=== PATIENT | female | born 1965 | race Caucasian/White ===

== ENCOUNTER 2019-01-19 12:36 | Outpatient (REF) | payer BC, SELFPAY ==
--- NOTE | 2019-01-19 09:30 | PAPFT_PTH ---
PATIENT: Yohana Gomez LOC: [facility] U#:[id number] AGE/SX: 53/F ROOM: RE01/19/[address]: NICOLE Boateng : 1965 BED: DIS: 01/19/2019 SPEC #: [id number] RECD: 01/19/19 13:04 STATUS: HAMZAH REUri #: [id number] KULWINDER: 01/19/19 09:[address]: Loli Howell [facility] Cytology RECD BY: Lupe Benedict Tissues: 1 - CX/ENDOCX FOR PAP SMEARS Procedures: PAP THIN PREP/UVM Screening Comments: [id number] (UNSATISFACTORY FOR EVALUATION)
== END 2019-01-19 12:56 ==
LOC: LBN 12:36
PROVIDERS: PCP Nurse Practitioner Family; Visit Provider Nurse Practitioner Family
DX: Z12.4 Encounter for screening for malignant neoplasm of cervix (principal); Z11.51 Encounter for screening for human papillomavirus (HPV)
CPT/HCPCS: 88142; 87624

== ENCOUNTER 2019-01-29 02:17 | Outpatient (CLI) | payer BC, SELFPAY ==
[2019-01-29 12:50] LABS: Hemoglobin A1C 6.1 % (4.5-6.2)
[2019-01-29 12:57] LABS: Anion Gap 8.5 mmol/L (3-11); BUN 22 mg/dL (7-18); CO2 28.5 mmol/L (21.0-32.0); CREATININE 0.87 mg/dL (0.55-1.02); Calcium 9.3 mg/dL (8.5-10.1); Chloride 102 mmol/L (98-107); Cholesterol 163 mg/dL (50-200); Glucose 104 mg/dL (70-100); HDL Cholesterol 55 mg/dL (40-60); LDL CHOLESTEROL 93 mg/dL (<100); Sodium 139 mmol/L (136-145); Triglyceride 79 mg/dL (30-150)
== END 2019-01-29 02:37 ==
PROVIDERS: PCP Nurse Practitioner Family; Visit Provider Nurse Practitioner Family
DX: Z00.00 Encounter for general adult medical examination without abnormal findings (principal); R73.01 Impaired fasting glucose
CPT/HCPCS: 36415; 80048; 80061; 83721; 83036

== ENCOUNTER 2019-02-09 08:44 | Outpatient (CLI) | payer BC, SELFPAY ==
--- NOTE | 2019-02-09 09:00 | DI.MAMMO_ITS ---
SYMPTOM/DIAGNOSIS: SCREENING, Z12.31, ANNUAL PHYSICAL EXAM, Z00.00 MAMMOGRAMS: Mammograms were interpreted according to the usual protocol including computer analysis with CAD system, tomosynthesis and C view imaging. The breasts are of moderate density with fairly symmetrical distribution of fibroglandular tissue. No dominant mass or clumped microcalcification is identified in either breast. The current examination is compared with previous examinations including 01/2017 and there has been no gross interval change in appearance in comparison with the previous studies. CONCLUSION: No specific evidence of malignancy at this time. Routine screening examinations are suggested at yearly intervals in this age group according to the ACS/ACR guidelines. Category 1. Breast density, category B. MQSA ASSESSMENT OF FINDINGS: Negative. Category 1. Patient will receive a letter notifying them of these results. BI-RADS category B. There are scattered areas of fibroglandular density.
== END 2019-02-09 09:04 ==
PROVIDERS: PCP Nurse Practitioner Family; Visit Provider Nurse Practitioner Family
DX: Z00.00 Encounter for general adult medical examination without abnormal findings (principal); Z12.31 Encounter for screening mammogram for malignant neoplasm of breast
CPT/HCPCS: 77063; 77067

== ENCOUNTER 2019-03-26 09:35 | Outpatient (REF) | payer BC, SELFPAY ==
--- NOTE | 2019-03-26 09:24 | PAPFT_PTH ---
PATIENT: Yohana Gomez LOC: [facility] U#:[id number] AGE/SX: 54/F ROOM: RE03/26/[address]: NICOLE Boateng : 1965 BED: DIS: 03/26/2019 SPEC #: [id number] RECD: 03/26/19 13:06 STATUS: HAMZAH KAUR #: [id number] KULWINDER: 03/26/19 09:[address]: Loli Howell DEPT: [facility] Cytology RECD BY: Lupe Benedict Tissues: 1 - CX/ENDOCX FOR PAP SMEARS Procedures: PAP THIN PREP/UVM Screening HPV DNA PROBE Comments: [id number]
== END 2019-03-26 09:55 ==
LOC: LBN 09:35
PROVIDERS: PCP Nurse Practitioner Family; Visit Provider Nurse Practitioner Family
DX: Z12.4 Encounter for screening for malignant neoplasm of cervix (principal); Z11.51 Encounter for screening for human papillomavirus (HPV)
CPT/HCPCS: 88142; 87624

== ENCOUNTER 2020-06-24 00:54 | Outpatient (CLI) | payer BC, SELFPAY ==
--- NOTE | 2020-06-24 15:53 | DI.MAMMO_ITS ---
EXAM: MG MAMMO SCREENING CLINICAL HISTORY: screening, Z12.39 TECHNIQUE: Bilateral full field digital CC and MLO mammographic images were obtained with 3D tomosyn thesis and utilizing computer aided detection (CAD). COMPARISON: Available for comparison. FINDINGS: Masses/Architectural Distortion: There is a focus of asymmetric breast tissue in the upper right reg st seen on the MLO view. Microcalcifications: No suspicious pleomorphic-type are seen. Skin Thickening/Nipple Retraction: None. IMPRESSION: 1. Focus of asymmetric breast tissue in the upper right breast on the MLO view. 2. Spot compression views and a right breast ultrasound are recommended for further evaluation. BI-RADS Category 0 - Assessment Incomplete: Need additional imaging evaluation Breast Density - Category B - Scattered areas of fibroglandular density A negative radiographic report should not delay biopsy if a dominant or clinically suspicious mass is present. Up to ten percent of cancers are not identified on mammography. A negative report may reinforce clinical impression. Adenosis and dense breasts may obscure an underlying neoplasm. False positive reports average 6 to 10%. Patient will receive a letter notifying them of these results.
== END 2020-06-24 01:14 ==
PROVIDERS: PCP Nurse Practitioner Family; Visit Provider Nurse Practitioner Family
DX: Z12.31 Encounter for screening mammogram for malignant neoplasm of breast (principal); R92.8 Other abnormal and inconclusive findings on diagnostic imaging of breast
CPT/HCPCS: 77063; 77067

== ENCOUNTER 2020-07-09 01:10 | Outpatient (CLI) | payer BC, SELFPAY ==
--- NOTE | 2020-07-09 | DI.MAMMO_ITS ---
EXAM: MG MAMMO SCREEN CALL BACK UNI CLINICAL HISTORY: F/U MAMMO, ASYMMETRIC BREAST TISSUE UPPER RT BREAST MLO VIEW TECHNIQUE: Mammograms were interpreted according to the usual protocol including computer analysis w [employer] CAD system, tomosynthesis and C-view imaging. COMPARISON: FINDINGS: Additional mammographic views of the right breast and right breast ultrasound are interpreted in conj unction. MLO spot compression view was obtained to evaluate questionable area of asymmetric density seen on recent mammogram. Spot compression view fails to show a discrete mass and no change from renetta or studies. Breast ultrasound shows no evidence of a mass or cyst. IMPRESSION: No specific evidence of malignancy at this time. Follow-up unilateral right breast mammogram recomme nded in 6 months. BI-RADS Category 3 - 6 month - Probably Benign Finding: Recommend follow-up mammography in 6 months Breast Density - Category B - Scattered areas of fibroglandular density
== END 2020-07-09 01:30 ==
PROVIDERS: PCP Nurse Practitioner Family; Visit Provider Nurse Practitioner Family
DX: R92.8 Other abnormal and inconclusive findings on diagnostic imaging of breast (principal); R92.2 Inconclusive mammogram
CPT/HCPCS: 76642; 77063; 77067

== ENCOUNTER 2020-12-10 08:37 | Outpatient (CLI) | payer BC, SELFPAY ==
[2020-12-11 13:06] LABS: COVID-19 RT-PCR UVMMC Result Negative (Negative)
== END 2020-12-10 08:38 | disposition home or self-care (01) ==
LOC: LBO 08:38
PROVIDERS: PCP Nurse Practitioner Family; Visit Provider Nurse Practitioner Family
DX: Z20.822 Contact with and (suspected) exposure to COVID-19 (principal)
CPT/HCPCS: U0003

== ENCOUNTER 2021-01-06 01:19 | Outpatient (CLI) | payer BC, SELFPAY ==
--- NOTE | 2021-01-06 09:49 | DI.MAMMO_ITS ---
EXAM: MG MAMMO DIAGNOSTIC UNI CLINICAL HISTORY: 3-6 MO F/U OF RT BREAST,F/U ABNL MAMMO, R92.8,Z09 TECHNIQUE: Mammograms were interpreted according to the usual protocol including computer analysis w ith CAD system, tomosynthesis and C-view imaging. COMPARISON: FINDINGS: Today's mammogram was obtained of the right breast only to evaluate questionable area of asymmetric d ensity seen on MLO view of prior mammogram of June 2020. Findings are unchanged or less promine nt on the current examination. No new mass or clumped microcalcification seen. IMPRESSION: No specific evidence of malignancy at this time. I would suggest that routine screening examinations resume with a bilateral mammogram in 6 months. BI-RADS Category 3 - 6 month - Probably Benign Finding: Recommend follow-up mammography in 6 months Breast Density - Category B - Scattered areas of fibroglandular density
== END 2021-01-06 01:39 ==
PROVIDERS: PCP Nurse Practitioner Family; Visit Provider Nurse Practitioner Family
DX: R92.8 Other abnormal and inconclusive findings on diagnostic imaging of breast (principal)
CPT/HCPCS: 77061; 77065; G0279

== ENCOUNTER 2021-06-16 04:34 | Outpatient (CLI) | payer BC, SELFPAY ==
[2021-06-16 13:05] LABS: Anion Gap 7.5 mmol/L (3-11); BUN 17 mg/dL (7-18); CO2 28.5 mmol/L (21.0-32.0); CREATININE 0.8 mg/dL (0.55-1.02); Calcium 9.2 mg/dL (8.5-10.1); Calculated LDL 78 mg/dL (<100); Chloride 104 mmol/L (98-107); Cholesterol 152 mg/dL (<200); Glucose 94 mg/dL (74-106); HDL Cholesterol 57 mg/dL (40-60); Potassium 4.3 mmol/L (3.5-5.1); Sodium 140 mmol/L (136-145); Triglyceride 89 mg/dL (<150)
[2021-06-16 13:13] LABS: Hemoglobin A1C 5.8 % (<5.7)
== END 2021-06-16 04:35 | disposition home or self-care (01) ==
LOC: LOS 04:35
PROVIDERS: PCP Nurse Practitioner Family; Visit Provider Nurse Practitioner Family
DX: R73.03 Prediabetes (principal)
CPT/HCPCS: 36415; 80048; 80061; 83036

== ENCOUNTER 2021-12-22 00:34 | Outpatient (CLI) | payer MEDICAID, SELFPAY ==
--- NOTE | 2021-12-22 07:15 | DI.MAMMO_ITS ---
Exam(s) MAMMO SCREENING EXAM: MAMMO SCREENING CLINICAL HISTORY: screening,z12.39 TECHNIQUE: Bilateral full field digital CC and MLO mammographic images were obtained with 3D tomosyn thesis and utilizing computer aided detection (CAD). COMPARISON: Available for comparison. FINDINGS: Masses/Architectural Distortion: None seen. Microcalcifications: No suspicious pleomorphic-type are seen. Skin Thickening/Nipple Retraction: None. IMPRESSION: 1. No significant interval change with no specific features of malignancy noted. 2. Unless there is more urgent need, screening mammography is recommended, as per [employer] guidelines. BI-RADS Category 1 - Negative Breast Density - Category B - Scattered areas of fibroglandular density Breast density category C or D implies that the patient has dense breast tissue. Dense breast tissue is very common and is not abnormal but dense breast tissue can make it harder to find cancer on a ma mmogram. Also, dense breast tissue may increase their breast cancer risk. This information about the result of the mammogram report was provided to the patient to raise their awareness. Use this report when you speak with the patient about their risks for breast cancer, which includes their family hist ory. At that time, you may recommend for more screening tests (Ultrasound or MRI) as they might be us eful based on their risk. A negative radiographic report should not delay biopsy if a dominant or clinically suspicious mass is present. Up to ten percent of cancers are not identified on mammography. A negative report may reinforce clinical impression. Adenosis and dense breasts may obscure an underlying neoplasm. False positive reports average 6 to 10%. Patient will receive a letter notifying them of these results.
== END 2021-12-22 00:54 ==
PROVIDERS: PCP Nurse Practitioner Family; Visit Provider Nurse Practitioner Family
DX: Z12.31 Encounter for screening mammogram for malignant neoplasm of breast (principal)
CPT/HCPCS: 77063; 77067

== ENCOUNTER 2022-02-04 10:15 | Outpatient (CLI) | payer MEDICAID, SELFPAY ==
--- NOTE | 2022-02-04 09:45 | DI.RAD_ITS ---
Exam(s) XR FINGER RT INDEX EXAM: XR FINGER RT INDEX CLINICAL HISTORY: evaluation TECHNIQUE: COMPARISON: No exams were available for comparison FINDINGS: Three views were obtained. There is slight narrowing of the cartilaginous joint space of the DIP ingrid nt. A small calcific or ossific density is seen adjacent to the ulnar aspect of the joint, presumabl y on a degenerative basis. Minimal marginal osteophyte formation also noted at the joint. No other bony or soft tissue abnormality seen. 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 RADIATION DOSE DELIVERED: Total DLP
== END 2022-02-04 10:16 | disposition home or self-care (01) ==
LOC: DIORS 10:15
PROVIDERS: PCP Nurse Practitioner Family; Referring Provider Nurse Practitioner Family; Visit Provider Physician Assistant Surgical
DX: M79.644 Pain in right finger(s) (principal); M94.8X4 Other specified disorders of cartilage, hand; M25.741 Osteophyte, right hand
CPT/HCPCS: 73140

== ENCOUNTER → 2022-02-12 00:26 | Outpatient (CLI) | payer MEDICAID, SELFPAY ==
--- NOTE | 2022-02-12 06:15 | DI.US_ITS ---
Exam(s) US SOFT TISSUE EXTREMITY EXAM: US SOFT TISSUE EXTREMITY CLINICAL HISTORY: evaluation of soft tissue mass/cyst,of finger,ganglion,m67.441. TECHNIQUE: Ultrasound was performed using standard protocol. COMPARISON: CR XR FINGER RT INDEX from 02/04/2022 FINDINGS: Sonographic assessment utilizing grayscale and color Doppler imaging was performed and targeted to th e area of clinical concern. There is a fluid collection measuring 9 x 7 x 8 millimeters corresponding to the palpable abnormality . No solid mass is seen. IMPRESSION: 9 millimeter cyst corresponding to the palpable abnormality of the index finger. DATA REPOSITORY:
== END ==
PROVIDERS: PCP Nurse Practitioner Family; Visit Provider Physician Assistant Surgical
DX: M67.441 Ganglion, right hand (principal); R22.31 Localized swelling, mass and lump, right upper limb
CPT/HCPCS: 76881

== ENCOUNTER 2022-02-24 08:39 | Day surgery (SDC) | payer MEDICAID, SELFPAY ==
[2022-02-24 08:57] VITALS: BP 120/83; PULSE 81; RESP 18; TEMP 36.7; O2SAT 99
--- NOTE | 2022-02-24 11:17 | W.PM.DSUDISC ---
Discharge Plan Disposition Patient Disposition: HOME Condition: Good Discharge Details Reason For Visit: Right index finger excisional biopsy Attending Provider: Vinicius Austin Primary Care Provider: Loli Howell Home Meds and New Rx's Prescriptions: Continued Flovent HFA 110 mcg/actuation HFA aerosol inhaler 1 inh inhalation BID Qty: 12 4RF (DME) Aerochamber MV Spacer See Rx Instructions .Route Qty: 10 1RF Rx Instructions: Use with inhaler albuterol sulfate [ProAir HFA] 90 mcg/actuation HFA aerosol inhaler 2 puff inhalation Q6H PRN (Reason: shortness of breath or wheezing) Qty: 8.5 5RF (DME) Pocket Peak Flow Meter Device See Rx Instructions .Route Qty: 1 0RF Rx Instructions: As directed montelukast 10 mg tablet 10 mg PO HS Qty: 90 4RF Rx Instructions: Take 1 tablet by mouth at bedtime cholecalciferol (vitamin D3) [Vitamin D3] 50 mcg (2,000 unit) Capsule 50 mcg PO DAILY 0RF black cohosh 540 mg Capsule 0RF cod liver oil Capsule 650 cap PO DAILY 0RF Discharge Instructions Additional Instructions: Excisional Biopsy Discharge Instructions Activity: You should keep the hand elevated as much as possible for the first few days. You may use the other fingers as tolerated but avoid trying to do too much too soon. You may perform light activities with the dressing in place. Dressing: Your dressing should stay in place for 48 hours. After 48 hours may remove and apply a band-aide. Apply ice as needed. Medications: - You should take Tylenol and Ibuprofen for baseline pain control. - You may apply ice over the finger. Follow-up: 7-10 days Stand Alone Forms: Lin Arreola (U) Referrals: Vinicius Austin MD [ [facility] STAFF PHYSICIAN] - Activity:: Elevate Remove Dressings/Wound Care:: 48 hours Shower/Bathe:: 48 hours Diet:: As Tolerated Discharge Orders Discharge Orders: Discharge Order (Routine); Ordered 02/24/22 Ordered By: Torrie Hood
[2022-02-24] MEDS: Lidocaine 1% Multi-Dose 50 ML VIAL (11:30)
[2022-02-24] MEDS: Sodium Bicarbonate 50 MEQ/50 ML VIAL (11:30)
[2022-02-24 11:43] VITALS: BP 120/62; PULSE 72; RESP 18; TEMP 36.1; O2SAT 100
--- NOTE | 2022-02-24 21:06 | W.PM.OP ---
Date of service: 02/24/22 Time of Service: 11:20 Operative Note Operative Note DATE OF PROCEDURE: 02/24/22 PRE-OP DIAGNOSIS: Right Index Finger Mass POST-OP DIAGNOSIS: other (Right Index Finger Ganglion Cyst) PROCEDURE: Excision of deep cyst - right index finger SURGEON: Vinicius Austin ANESTHESIA TYPE: Local By Surgeon Refer to Anesthesia Record ESTIMATED BLOOD LOSS: 5 PATHOLOGY: none sent COMPLICATIONS: None Patient was transported to: same day Patient's condition: stable Indications: I have seen Yohana in clinic for symptoms of a mass about the right index finger. The mass persisted and caused pain to direct contact and with use. It appeared benign and was a likely cyst but was in a unique position so therefore I recommended an excisional biopsy. The symptoms had not responded to conservative measures. I discussed mass excision with the patient. I reviewed the risks of the procedure to include, but not limited to, bleeding, infection, pain, stiffness, recurrence, need for repeat procedures, damage to nerves or vessels. Despite these risks, the patient elected to proceed. Findings: There is a ganglion cyst deep to the neurovascular bundle over the palmar radial aspect of the finger. This was removed in whole as well as the bursal tissue. Procedure Description: Yohana was greeted in the preoperative holding area where the correct side was identified and marked. The consent was reviewed with the patient and signed. All questions were answered. She was taken back to the operating room. The patient was placed into the supine position on the operating room table with the right arm on an arm board. All bony prominences were well padded. No prophylactic antibiotics were administered since this was a clean, elective hand surgical case. The right arm was then prepped with Chloraprep and draped in a standard fashion with stockinette and extremity drape. A timeout to confirm correct identity, side and site, procedure, allergies, anesthesia, and medical concerns was performed. A digital block was then performed using 1% lidocaine with epinephrine and buffered with sodium bicarbonate. This was allowed time to set up completely and was tested before proceeding with the case. A longitudinal incision was then made overlying the cyst. The skin was incised sharply. Full-thickness flaps were then elevated where promiinent fat was identified. This was resected. This seemed to be more than I was expecting but was not organized to suggest a lipoma. Neurovascular bundle was then identified and retracted out of the way at this point a deeper cyst became evident. The cyst capsule was standard and its appearance. I was able to dissect out the cyst and then resected in a hole. The cyst capsule was then removed with a rongeur. It was adjacent to the bone and the bone surface was also roughened at this point. Did not seem to travel back to the PIP or the MCP joint. The finger was irrigated and once again checked to make sure that all components of the cyst were removed. The skin was then closed using a #4-0 nylon in interrupted fashion. The finger was dressed with Xeroform, 4 x 4, conform dressing. The patient tolerated the procedure well and was returned to the Same Day Surgery area in a stable condition suffering no known complication.
== END 2022-02-24 12:17 | disposition home or self-care (01) ==
PROVIDERS: PCP Nurse Practitioner Family; Visit Provider Student in an Organized Health Care Education/Training Program
PROC: (CPT 26160; principal; 2022-02-24 11:45)
DX: M67.441 Ganglion, right hand (principal)
CPT/HCPCS: 26160

== ENCOUNTER 2022-12-06 07:13 | Day surgery (SDC) | payer MEDICAID, SELFPAY ==
--- NOTE | 2022-12-05 19:49 | W.COLOREPORT ---
Date of service: 12/06/22 Time of Service: 09:45 Colonoscopy Report Date of procedure: 12/06/22 Pre-op diagnosis general: Screening colonscopy; positive family history Post-op diagnosis procedure note: other (rectal polyps) Procedure: 1. Colonosocpy 2. Cold forceps polypectomy Surgeon: Tushar Rowe Anesthesia Type: MAC Estimated blood loss (mL): 2 Pathology: other (rectal polyps) Complications: None Disposition: same day Indications: Screening--unremarkable scope in 2016; Positive Family history; Prep: Miralax/Dulcolax Retraction Time: >15 min Findings: hyperplastic-appearing rectal polyps at 10cm Procedure Description: After informed consent was obtained, the patient was taken to the procedure room and placed in a left decubitus position. Monitors were applied and a time out was done. The patient's name, date of , procedure, allergies to medications, and metal in their body were reviewed. The patient was then sedated. Once sedated and comfortable, a digital rectal exam was done. External exam was normal. Internal exam revealed normal sphincter tone, and no palpable masses or gross blood. The colonoscope was then introduced and advanced to the cecum under direct visualization with mild difficulty. The ileocecal valve and appendiceal orifice were visualized. The prep was excellent.? ?The scope was then slowly withdrawn over 15 minutes in a circumferential manner to the rectum. In doing so, 2 small rectal polyps were encountered. These were taken by cold forceps.? There? was no diverticulosis noted. The mucosa is pink and healthy.? In the rectum, the scope was retroflexed, and mild internal hemorrhoids were noted.? The scope was straightened and withdrawn from the anus. The patient tolerated the procedure well, and there were no immediate complications.? The patient was taken to the Day Surgery Unit recovery?area in good condition. Follow up: 5 years, await pathology
--- NOTE | 2022-12-05 19:52 | W.PM.DSUDISC ---
Date of service: 12/06/22 Time of Service: 09:51 Discharge Plan Disposition Patient Disposition: Home Condition: Good Discharge Details Reason For Visit: Screening for colorectal cancer; +family history Attending Provider: Tushar Rowe Primary Care Provider: Loli Howell Home Meds and New Rx's Prescriptions: No Action montelukast 10 mg tablet 10 mg PO HS Qty: 90 4RF Rx Instructions: Take 1 tablet by mouth at bedtime fluticasone propionate [Flovent HFA] 110 mcg/actuation HFA aerosol inhaler 1 inh inhalation BID Qty: 12 4RF (DME) Aerochamber MV Spacer See Rx Instructions .Route Qty: 10 1RF Rx Instructions: Use with inhaler bisacodyl [Dulcolax (bisacodyl)] 5 mg tablet,delayed release (DR/EC) 5 mg PO ONCE Qty: 4 0RF Rx Instructions: Take according to provider's instructions for colonoscopy prep. polyethylene glycol 3350 17 gram/dose powder 17 g PO ONCE Qty: 238 0RF Rx Instructions: To be taken as directed by prescriber's office for colonoscopy prep. (DME) Pocket Peak Flow Meter Device See Rx Instructions .Route Qty: 1 0RF Rx Instructions: As directed cholecalciferol (vitamin D3) [Vitamin D3] 50 mcg (2,000 unit) Capsule 50 mcg PO DAILY cod liver oil Capsule 650 cap PO DAILY albuterol sulfate [ProAir HFA] 90 mcg/actuation HFA aerosol inhaler 2 inh INHALATION PRN PRN Patient Comments: INHALE TWO PUFFS EVERY 6 HOURS NEEDED FOR FOR SHORTNESS OF BREATH Discharge Instructions Instructions: Colonoscopy (DC), Colorectal Polyps (DC) Additional Instructions: Await pathology. Repeat colonoscopy in 5 years. Activity:: Activity as Tolerated Diet:: As Tolerated DS: Diagnosis Discharge Diagnosis (1) Family history of colon cancer: Status: Acute Asessment and Plan: --repeat colonoscopy in 5 years (2) Rectal polyp: Status: Acute Asessment and Plan: --await pathology
[2022-12-06 07:31] VITALS: BP 127/87; PULSE 91; RESP 18; TEMP 36.4; O2SAT 97
[2022-12-06] MEDS: Lactated Ringers 1,000 ML 80 ML IV (07:55)
--- NOTE | 2022-12-06 08:24 | W.ANESPRE ---
General Info Date of Service Date Performed: 12/06/22 Height: 5 ft 3 in Weight: 82.4 kg Body Mass Index (BMI): 32.1 Surgical Procedure: Operation Date: 12/06/22 08:35 Proposed Procedure Side Surgeon fernandez Rowe MD Meds Allergies and Home Medications Allergies Allergy/AdvReac Type Severity Reaction Status Date / Time clindamycin Allergy Mild Skin Rash Unverified 12/06/22 07:39 cephalexin Allergy Skin Rash Unverified 12/06/22 07:39 Penicillins Allergy Skin Rash Unverified 12/06/22 07:39 Home Medication Medication Instructions Recorded inhalational spacing device #10 ea 12/16/21 (Aerochamber MV spacer) peak flow meter (Pocket Peak Flow #1 ea 12/30/21 Meter) cholecalciferol (vitamin D3) 50 50 mcg PO DAILY 02/24/22 mcg (2,000 unit) capsule (Vitamin D3) cod liver oil 650 cap PO DAILY 02/24/22 fluticasone propionate 110 1 inh inhalation BID #12 grams 06/17/22 mcg/actuation HFA aerosol inhaler (Flovent HFA) montelukast 10 mg tablet 10 mg PO HS #90 tab-caps 06/17/22 bisacodyl 5 mg tablet,delayed 5 mg PO ONCE #4 tabs 11/25/22 release (Dulcolax (bisacodyl)) polyethylene glycol 3350 17 17 g PO ONCE #238 grams 11/25/22 gram/dose oral powder albuterol sulfate 90 mcg/actuation 2 inh inhalation PRN PRN 12/06/22 aerosol inhaler (ProAir HFA) Current Visit Medications: Current Medications Generic Name Dose Route Start Last Admin Trade Name Freq PRN Reason Stop Dose Admin Ringer's Solution 1,000 mls @ 80 mls/hr 12/06/22 06:00 12/06/22 07:55 IV 01/02/23 23:59 80 mls/hr INFUSION JR Administration IV Miscellaneous Supplies 1 each 12/06/22 06:00 Iv Access IV 01/02/23 23:59 DIRECTED JR Sodium Chloride 0 ml 12/06/22 06:00 Normal Saline Flush 10 Ml Syr IV 01/02/23 23:59 PRN PRN Sodium Chloride 0 ml 12/06/22 06:00 Normal Saline 10 Ml Vial IJ 01/02/23 23:59 DIRECTED PRN Sterile Water 0 ml 12/06/22 06:00 Water,Injection,Sterile 10 Ml Vial IJ 01/02/23 23:59 DIRECTED PRN PFSH Active Problems Active Problems: Problem Status Onset Code Family history of colon cancer Z80.0 Screening for colon cancer Z12.11 Asthma J45.909 Obstructive sleep apnea G47.33 Prediabetes R73.03 Plantar wart of left foot B07.0 Medical History Medical History COVID-19 (~03/20/22) Uterus didelphus 2 uterus, 2 cervix, 1 vagina. S/p partial hysterectomy Surgical History Surgical History History of section (10/08/02) S/P laparoscopic supracervical hysterectomy (09/23/01) For AUB, fibroids Tobacco Smoking/Tobacco Use Status: Never Passive smoking exposure: No Second hand exposure: No Alcohol Alcohol Intake: current Alcohol intake frequency: holidays/special occasions only Alcohol type: beer Substance Use Substance use: Rarely Substance use type: marijuana Details: Last used July 2023 Prental History History 2 Para 2 Hx # Term Pregnancies Multiple births Hx # Pregnancies Ectopic pregnancies AB induced Hx Number of Living Children 2 AB spontaneous Vital Signs and Lab Results Vital Signs Most Recent Vital Signs in EMR: Most Recent Vital Signs Temp Pulse Resp BP Pulse Ox 36.4 C L 91 H 18 127/87 97 12/06/22 07:31 12/06/22 07:31 12/06/22 07:31 12/06/22 07:31 12/06/22 07:31 Lab Results Blood Type / Crossmatch: No Data to Display Complete Blood Count: No Data to Display Complete Metabolic Panel: No Data to Display Liver Function Panel: No Data to Display Coagulation Panel: No Data to Display Cardiac Panel: No Data to Display Arterial Blood Gas: No Data to Display Venous Blood Gas: No Data to Display Pancreas Panel: No Data to Display Thyroid Panel: No Data to Display Infectious Disease: No Data to Display Blood Cultures: No Data to Display Toxicology Panel: No Data to Display Anesthesia Assessment and Plan Anesthesia History Personal History: No History of Anesthesia Complications Family History: No Family History of Anesthesia Complications Exercise Tolerance Exercise Tolerance: Metabolic Equivalents>4 Pertinent Negatives Pertinent Negatives: No Symptoms of GERD Cardiac & Pulmonary Exam Cardiac Exam: Normal S1/S2 Heart Sounds Pulmonary Exam: Clear Bilateral Breath Sounds Implantable Cardiac Device Does patient have a Pacemaker or an ICD?: No Airway Exam Known Difficult Airway: No Mallampati Class: 2 Mouth Opening: Normal (> 3cm) Thyromental Distance: Greater than 3 cm Neck Range of Motion: Full ROM Neck Circumference: Normal Teeth Condition: Normal Dentition ASA Classification ASA Score: ASA 2 Emergency Case?: No NPO Status NPO Status: NPO Clears >2 hours, Solids >8 hours Anesthesia Plan Resuscitation Status: Full Code Anesthesia Technique: General Anesthesia Airway Planned: Natural Airway Monitors Used: Standard Monitors
[2022-12-06 08:52] VITALS: BMI 32.1
--- NOTE | 2022-12-06 09:38 | BOWEL_PTH ---
PATIENT: Yohana Gomez LOC: [facility] U#:[id number] AGE/SX: 57/F ROOM: RE12/06/[address]: Tushar Rowe : 1965 BED: DIS: 12/06/2022 SPEC #: [id number] RECD: 12/06/22 12:34 STATUS: HAMZAH REQ #: [id number] KULWINDER: 12/06/22 09:[address]: Tushar Rowe DEPT: Surgical Specimen RECD BY: Lupe Benedict ENTERED: 12/06/22 12:35 SP TYPE: Bowel OTHR DR: NICOLE Baoteng Tissues: 1 - BIOPSY BOWEL Procedures: GROSS AND MICRO LEVEL 4 Comments: [id number]
[2022-12-06 09:47] VITALS: BP 124/80; PULSE 76; RESP 16; TEMP 36.6; O2SAT 99
--- NOTE | 2022-12-06 09:55 | W.ANESPOSTOP ---
Postoperative Evaluation Date, Time and Location Date Performed: 12/06/22 Time Performed: 09:55 Patient Location: Day Surgery Unit Vital Signs Most Recent Imported Vital Signs: Most Recent Vital Signs Temp Pulse Resp BP Pulse Ox 36.6 C 76 16 124/80 99 12/06/22 09:47 12/06/22 09:47 12/06/22 09:47 12/06/22 09:47 12/06/22 09:47 Pain Score Most Recent Pain Score: Most Recent Pain Score Pain Level 0 12/06/22 09:47 Assessment Mental Status: Awake (Alert & Oriented to Patient Baseline) Airway and Respiratory Function: Patent airway with normal (patient baseline) respiratory exam Cardiovascular Function: Hemodynamically Stable Hydration Status: Adequately Hydrated Nausea & Vomiting: No Nausea or Vomiting Pain: Pt. Denies Any Pain Peripheral Nerve Block: Patient did not receive a nerve block
[2022-12-06 10:15] VITALS: BP 121/88; PULSE 72; RESP 18; TEMP 36.1; O2SAT 99
== END 2022-12-06 10:34 | disposition home or self-care (01) ==
PROVIDERS: PCP Nurse Practitioner Family; Visit Provider Surgery
PROC: 0DJD8ZZ Inspection of Lower Intestinal Tract, Via Natural or Artificial Opening Endoscopic (ICD-10-PCS; CPT 45378; principal; 2022-12-06 08:30)
DX: Z12.11 Encounter for screening for malignant neoplasm of colon; K62.1 Rectal polyp; Z80.0 Family history of malignant neoplasm of digestive organs
CPT/HCPCS: 45380; 88305

== ENCOUNTER 2023-06-22 02:07 | Outpatient (CLI) | payer MEDICAID, SELFPAY ==
[2023-06-22 13:01] LABS: Hemoglobin A1C 5.7 % (<5.7)
[2023-06-22 13:08] LABS: Anion Gap 8.1 mmol/L (3-11); BUN 16 mg/dL (7-18); CO2 27.9 mmol/L (21.0-32.0); CREATININE 0.8 mg/dL (0.55-1.02); Calcium 9.1 mg/dL (8.5-10.1); Chloride 102 mmol/L (98-107); Estimated GFR 85.89 (mL/min/1.73m2); Glucose 117 mg/dL (74-106); Potassium 3.9 mmol/L (3.5-5.1); Sodium 138 mmol/L (136-145)
== END 2023-06-22 02:08 | disposition home or self-care (01) ==
LOC: LBO 02:07
PROVIDERS: PCP Nurse Practitioner Family; Visit Provider Nurse Practitioner Family
DX: R73.03 Prediabetes (principal); J45.20 Mild intermittent asthma, uncomplicated
CPT/HCPCS: 36415; 80048; 83036

== ENCOUNTER 2024-06-21 12:40 | Outpatient (REF) | payer BC, SELFPAY ==
--- NOTE | 2024-06-21 10:00 | PAPFT_PTH ---
PATIENT: Yohana Gomez LOC: [facility] U#:[id number] AGE/SX: 59/F ROOM: RE06/21/[address]: NICOLE Boateng : 1965 BED: DIS: 06/21/2024 SPEC #: [id number] RECD: 06/21/24 12:55 STATUS: HAMZAH KAUR #: [id number] KULWINDER: 06/21/24 10:[address]: Loli Howell DEPT: [facility] Cytology RECD BY: Lupe Benedict Tissues: 1 - CX/ENDOCX FOR PAP SMEARS Procedures: PAP THIN PREP/UVM Screening HPV DNA PROBE Comments: [id number] (HPV 16 & 18/45)
== END 2024-06-21 12:41 | disposition home or self-care (01) ==
LOC: LBN 12:40
PROVIDERS: PCP Nurse Practitioner Family; Visit Provider Nurse Practitioner Family
DX: G47.33 Obstructive sleep apnea (adult) (pediatric) (principal); Z12.39 Encounter for other screening for malignant neoplasm of breast; Z00.00 Encounter for general adult medical examination without abnormal findings; J45.30 Mild persistent asthma, uncomplicated; B07.0 Plantar wart; R73.03 Prediabetes
CPT/HCPCS: 88142; 87624

== ENCOUNTER 2024-07-04 02:09 | Outpatient (CLI) | payer BC, SELFPAY ==
--- NOTE | 2024-07-04 06:45 | DI.MAMMO_ITS ---
Exam(s) MAMMO SCREENING EXAM: MAMMO SCREENING CLINICAL HISTORY: screening,Z12.39 TECHNIQUE: Mammograms were interpreted according to the usual protocol including computer analysis w [employer] CAD system, tomosynthesis and C-view imaging. COMPARISON: 2014 through 2021 FINDINGS: The breasts are composed of scattered fibroglandular densities, Breast Density category B. No suspicious masses or suspicious microcalcifications are seen. No skin thickening or abnormal axillary lymph nodes are seen. There has been no significant change from prior exams. IMPRESSION: BI-RADS Category 1, Negative mammogram Yearly screening mammography is recommended. Breast Density - Category B, scattered fibroglandular densities. A negative radiographic report should not delay biopsy if a dominant or clinically suspicious mass is present. Up to ten percent of cancers are not identified on mammography. A negative report may reinforce clinical impression. Adenosis and dense breasts may obscure an underlying neoplasm. False positive reports average 6 to 10%. Patient will receive a letter notifying them of these results.
== END 2024-07-04 02:29 ==
LOC: DI 02:09
PROVIDERS: PCP Nurse Practitioner Family; Visit Provider Nurse Practitioner Family
DX: Z12.31 Encounter for screening mammogram for malignant neoplasm of breast (principal)
CPT/HCPCS: 77063; 77067

== ENCOUNTER 2024-08-30 03:39 | Outpatient (CLI) | payer BC, SELFPAY ==
[2024-08-30 10:14] LABS: HGB 13.5 g/dL (11.2-15.7); MCH 28.8 pg (27.0-33.0); MCHC 32.1 % (32.0-36.0); MCV 90 fL (80-95); Platelet Count 311 10^3/uL (130-400); RBC 4.69 10^6/uL (3.93-5.22); RDW 12.9 % (11.7-14.6); RDW-SD 42.2 fL; WBC 6.14 10^3/uL (4.4-10.8)
[2024-08-30 10:52] LABS: Anion Gap 9.5 mmol/L (3-11); BUN 15 mg/dL (7-18); CO2 28.5 mmol/L (21.0-32.0); CREATININE 0.9 mg/dL (0.55-1.02); Calcium 9.5 mg/dL (8.5-10.1); Calculated LDL 79 mg/dL (<100); Chloride 103 mmol/L (98-107); Cholesterol 162 mg/dL (<200); Glucose 103 mg/dL (74-106); HDL Cholesterol 71 mg/dL (40-60); Potassium 3.8 mmol/L (3.5-5.1); Sodium 141 mmol/L (136-145); Triglyceride 63 mg/dL (<150)
[2024-08-30 20:39] LABS: HBs Antibody, Quant 7.8 mIU/mL (See Note); Hep B Surface Ab Negative (See Note); Hepatitis B Core Antibody Negative (Negative); Hepatitis B Surface Antigen Negative (Negative)
[2024-08-30 20:47] LABS: HIV-1/2 Ag & Ab Screen Negative (Negative)
[2024-08-30 20:52] LABS: Hepatitis C Ab w Rflx HCV PCR Negative (Negative)
== END 2024-08-30 03:40 | disposition home or self-care (01) ==
PROVIDERS: PCP Nurse Practitioner Family; Visit Provider Nurse Practitioner Family
DX: Z00.00 Encounter for general adult medical examination without abnormal findings (principal); R73.03 Prediabetes
CPT/HCPCS: 36415; 80048; 80061; 85027; 86704; 86706; 86803; 87340; 87389